=== PATIENT | female | born 1990 | race Caucasian/White ===

== ENCOUNTER 2017-02-08 15:06 | Emergency (ER) | payer OTHER ==
[~2017-02-08] VITALS: Ht 162.6 cm; Wt 117.0 kg
[~2017-02-08 15:06] MED LIST: ADVIL200 MG PO; ALLEGRA180 MG PO; ALPRAZOLAM1 M2 PO; AZITHROMYCIN250 M1 PO; FISH OIL 1,2001 EAC2 PO; FLUTICASONE PRO16 GM; KEFLEX500 MG PO; MEDROL DOSEPAK1 PAC PO; METFORMIN HCL500 M4 PO; MIRENA1 EACH; MULTI-DAY VITA1 EACH PO; NASONEX17 GM NASB; OMEPRAZOLE40 M1 PO; OXCARBAZEPINE600 M1 PO; RANITIDINE HCL150 MG PO; SYNTHROID0.075 MG PO; VITAMIN D250000 UNIT PO; VYVANSE10 M1 PO; ZANTAC 150MG150 MG PO; ZOFRAN 4 MG TABL4 MG PO; ZOFRAN ODT4 M1 PO; ZOLOFT50 MG PO
[2017-02-08 15:36] VITALS: BP 144/99
--- NOTE | 2017-02-08 15:51 | ED SKIN/ALLERGY COMPLAINT ---
History of Present Illness General Chief Complaint: General Adult Stated Complaint: INFECTION IN RIGHT BREAST Source: patient, old records Exam Limitations: no limitations Vital Signs & Intake/Output Vital Signs & Intake/Output Vital Signs Date Time Temp Pulse Resp B/P Pulse O2 O2 Flow FiO2 Ox Delivery Rate 02/08 1536 98.9 112 16 144/99 97 Room Air Allergies Coded Allergies: Penicillins (ANAPHYLAXIS 09/15/16) Sulfa (Sulfonamide Antibiotics) (ANAPHYLAXIS 09/15/16) nitrofurantoin (From MACROBID) (ANAPHYLAXIS 09/15/16) sulfamethoxazole (From BACTRIM) (ABD PAIN 09/15/16) trimethoprim (From BACTRIM) (ABD PAIN 09/15/16) Reconcile Medications Alprazolam 1 MG TABLET 1 TAB PO TID PRN ANXIETY (Reported) Azithromycin 250 MG TABLET 1 DP PO AD ANTIBIOTIC (Reported) 2 the first day followed by 1 for days 2-5 Cephalexin (Keflex) 500 MG CAPSULE 1 CAP PO TID mastitis Ergocalciferol (Vitamin D2) (Vitamin D2) 50,000 UNIT CAPSULE 1 CAP PO QSUN SUPPLEMENT (Reported) Fexofenadine Hydrochloride (Aidee) 180 MG TAB 1 TAB PO DAILY ALLERGIES ( Reported) Fluticasone Propionate (Unknown Strength) SPRAY.SUSP (Unknown Dose) UNKNOWN ( Reported) Levonorgestrel (Mirena) 20 MCG/24 HOUR (5 YEARS) IUD CONTROL (Reported) Levothyroxine Sodium (Synthroid) 0.075 MG TAB 0.075 MG PO DAILY AC THYROID ( Reported) Lisdexamfetamine Dimesylate (Vyvanse) 10 MG CAPSULE 1 CAP PO QAM ADD ( Reported) Metformin HCl (Metformin HCl ER) 500 MG TAB.ER.24H 1,500 MG PO DAILY PCOS ( Reported) Mometasone Furoate (Nasonex) 50 MCG SPRAY.PUMP 2 SPRAY NASB DAILY CONGESTION Multivitamin (Multi-Day Vitamins) 1 EACH TABLET 1 TAB PO DAILY SUPPLEMENT ( Reported) Cromona-3S/Dha/Epa/Fish Oil (Fish Oil 1,200 MG Softgel) (Unknown Strength) CAPSULE (Unknown Dose) PO DAILY SUPPLEMENT (Reported) Omeprazole 40 MG CAPSULE.DR 1 CAP PO DAILY GI (Reported) Ondansetron (Zofran Odt) 4 MG TAB.RAPDIS 2 TAB PO Q8H PRN N/V (Reported) Oxcarbazepine 600 MG TABLET 1 TAB PO BID MOOD (Reported) Ranitidine (Ranitidine HCl) 150 MG TABLET 1 TAB PO DAILY GI (Reported) Triage Note: RECEIVED 26 YO FEMALE SENT BY [facility] FOR EVALUATION OF RIGHT BREAT MASTITIS X 2 DAYS Triage Nurses Notes Reviewed? yes Onset: Abrupt Duration: day(s): (2), constant Timing: recent history Severity: moderate Severity Numbers: 5 Location: r breast Possible Factors: no cause identified No Modifying Factors: none Associated Symptoms: denies : No Patient currently breastfeeds: No HPI: 26 Year old female with history of PCO S hypothyroid presents to emergency room complaining of redness warmth and pain to her right breast for the past 2 days. She denies any known injury or trauma. The patient is not currently breast- feeding however states she is still lactating after having her daughter 2 years ago. The patient denies fever chills diaphoresis. No history of similar episodes in the past no chest pain shortness of breath. She went to an urgent care yesterday and was prescribed clindamycin. She states she went to her primary care physician today and states that the rash worsened and was referred here for further evaluation. No history of malignancy or nipple discharge or bleeding. No nausea vomiting. Past History Travel History Traveled to [place] past 21 day No Medical History Any Pertinent Medical History? see below for history Neurological: NONE EENT: NONE Cardiovascular: NONE Respiratory: bronchitis Gastrointestinal: NONE Hepatic: NONE Renal: NONE Musculoskeletal: NONE Psychiatric: anxiety, depression Endocrine: HYPOTHYROIDISM INSULIN RESISTANCE Blood Disorders: NONE Cancer(s): NONE SHOE DYER/Reproductive: yeast infections, PREECLAMPSIA INFECTED CSECTION INCISIO Surgical History Surgical History: non-contributory Psychosocial History What is your primary language French Tobacco Use: Never used Family History Hx Contributory? No Review of Systems Review of Systems Constitutional: Reports: see HPI. All Other Systems: Reviewed and Negative Comments Review of systems: See HPI, All other systems negative. Constitutional, no chills no fever, no malaise HEENT: no sore throat no congestion, no ear pain Cardiovascular: No chest pain , no palpitation , no orthopnea no ankle swelling Skin, SEE HPI Respiratory: No dyspnea no cough no sputum GI: No nausea no vomiting, no diarrhea, : No dysuria No hematuria, no frequency, no discharge Muscle skeletal: No joint pain, no joint swelling, no back pain, no neck pain, Neurologic: no headache Psych: No stress Heme/endocrine: No bruising no bleeding Immunology: No lymphadenopathy Physical Exam Physical Exam General Appearance: well developed/nourished, alert, awake Comments: Well-developed well-nourished patient in no apparent distress. HEENT: Atraumatic, extraocular motion intact Neck: Supple, FROM, Back: FROM Cardiovascular: Regular rate and rhythms no murmurs rubs or gallops, Respiratory: Chest nontender.There were no bony deformities, no asymmetry. No respiratory distress. Patient speaking in full complete sentences. Breath sounds clear to auscultation bilaterally: NO W/R/R Extremities: full range of motion Neuro: Alert and oriented x3 Skin: Warm & dry; there is a 5 x 5 cm area of erythema and warmth noted to the right lower breast no induration no fluctuance no discharge elicited from the nipple there is no AXILLARY LYMPHADENOPATHY Psych: Mood affect normal, normal memory normal judgment. Progress Differential Diagnosis: abscess/cellulitis, allergic reaction, contact dermatitis, malignancy, mastitis Plan of Care: I discussed with the patient at length all of their results. I had an extensive conversation regarding need for close follow up with their primary care physician this week as well as return precautions. I answered all of their questions, they feel comfortable with the plan and follow-up care. Markings were made previously around the area of infection. Prescription for Keflex provided which the patient's had in the past without any a adverse reactions. Discussed with her that this can cross react with penicillin she states she's had it without problems. Patient will stop her clindamycin. She'll return anytime sooner if the rash worsens fevers chills discharge or any other concerns she will otherwise follow up with her primary care physician or return to ER 48- 72 hours for wound check. I discussed the medications that they will receive with the patient. I gave them signs and symptoms that could indicate an adverse reaction. I have advised them to limit their activities until they can see how they respond to the medication. Departure Departure Time of Disposition: 1609 Disposition: HOME OR SELF CARE Condition: Stable Clinical Impression Primary Impression: Mastitis Referrals: RAMIN HERNANDEZ-NIKIA,JAMILA Plata (PCP/Family) SHARMILA RYDER,KAMRYN Additional Instructions: Follow-up with your primary care physician as well as breast specialist Dr. ward on Saturday. Keflex as directed warm compresses as needed return with any concerns this was sent to your pharmacy Departure Forms: Customer Survey General Discharge Information Prescriptions: Current Visit Scripts Cephalexin (Keflex) 1 CAP PO TID #21 CAP
[2017-02-08] MEDS ORDERED: KEFLEX500 M1 PO (16:11)
== END 2017-02-08 16:18 ==
LOC: ERH 15:06
DX: N61.0 Mastitis without abscess (principal)